=== PATIENT | male | born 1940 | race Caucasian/White ===

== ENCOUNTER 2023-10-14 11:05 | Observation (INO) | payer MEDICARE ==
[2023-10-14 17:08] LABS: #Eosinphils 0.1 thou/uL (0.0-0.7); #Monocytes 0.6 thou/uL (0.11-0.59); #Neutrophils 6.4 thou/uL (1.40-6.50); %Basophils 0.3 % (0.0-1.0); %Eosinophils 0.9 % (0.0-10.0); %Lymphocytes 10.3 % (21.0-51.0); %Monocytes 7.9 % (0.0-10.0); %Neutrophils 80.3 % (42.0-75.0); Hematocrit 43.9 % (42.0-52.0); Hemoglobin 15.2 g/dL (14.0-18.0); Mean Corpuscular HGB CONC 34.6 g/dL (32.0-36.0); Mean Corpuscular Hemoglobin 32.3 pg (27.0-31.0); Mean Corpuscular Volume 93.4 fl (78.0-98.0); Mean Platelet Volume 10.9 fL (7.4-10.4); Platelet Count 208 10x3/uL (130-400); RBC Distribution Width 12.8 % (11.5-14.5)
[2023-10-14 17:31] LABS: ALT (SGPT) 20 U/L (8-55); AST (SGOT) 17 U/L (5-34); Albumin 4.2 g/dL (3.4-4.8); Alkaline Phosphatase 99 U/L (40-110); Anion Gap 12 mmol/L (10-20); BUN (Urea Nitrogen) 25 mg/dL (8.4-25.7); Bilirubin, Total 0.7 mg/dL (0.2-1.2); Calc. Creatinine Clearance 0 mL/min (70-130); Calcium 9.2 mg/dL (7.8-10.44); Carbon Dioxide 28 mmol/L (23-31); Chloride 102 mmol/L (98-107); Estimated GFR 86; Globulin 2.9 g/dL (2.4-3.5); Glucose 96 mg/dL (83-110); Potassium 4.3 mmol/L (3.5-5.1); Protein, Total 7.1 g/dL (5.8-8.1); Sodium 138 mmol/L (136-145)
[2023-10-14] MEDS ORDERED: Acetaminophen 325 MG TAB PO PRN (17:36)
[2023-10-14] MEDS ORDERED: Ondansetron PF 4 MG/2 ML Vial IVP PRN (17:36)
[2023-10-14] MEDS ORDERED: Glucagon 1 MG/ML KIT IM PRN (19:19)
[2023-10-14] MEDS ORDERED: Dextrose 50% Abboject 50 ML SYRINGE SLOW IVP PRN (19:19)
[2023-10-14] MEDS ORDERED: Dextrose 5% in Water 1,000 ML IV PRN (19:19)
[2023-10-14] MEDS ORDERED: HumaLOG 300 UNITS/3 ML VIAL SC PRN ×2 (19:19)
[2023-10-14 19:20] VITALS: BMI 25.0
[2023-10-14] MEDS: Sodium Chloride 0.9% 1,000 ML IV SCH (20:33)
[2023-10-15 06:35] LABS: #Eosinphils 0.1 thou/uL (0.0-0.7); #Monocytes 0.7 thou/uL (0.11-0.59); #Neutrophils 5.7 thou/uL (1.40-6.50); %Basophils 0.3 % (0.0-1.0); %Lymphocytes 10.8 % (21.0-51.0); %Monocytes 9.2 % (0.0-10.0); %Neutrophils 78.6 % (42.0-75.0); Hematocrit 41.6 % (42.0-52.0); Hemoglobin 14.2 g/dL (14.0-18.0); Mean Corpuscular HGB CONC 34.1 g/dL (32.0-36.0); Mean Corpuscular Hemoglobin 32.2 pg (27.0-31.0); Mean Corpuscular Volume 94.3 fl (78.0-98.0); Mean Platelet Volume 10.9 fL (7.4-10.4); Platelet Count 190 10x3/uL (130-400); RBC Distribution Width 12.8 % (11.5-14.5); Red Blood Cell (RBC) Count 4.41 mill/uL (4.70-6.10); White Blood Cell (WBC) Count 7.3 10x3/uL (4.8-10.8)
[2023-10-15 06:57] LABS: Anion Gap 10 mmol/L (10-20); BUN (Urea Nitrogen) 25 mg/dL (8.4-25.7); Calc. Creatinine Clearance 68 mL/min (70-130); Calcium 8.5 mg/dL (7.8-10.44); Carbon Dioxide 23 mmol/L (23-31); Chloride 109 mmol/L (98-107); Estimated GFR 87; Glucose 104 mg/dL (83-110); Sodium 138 mmol/L (136-145)
[2023-10-15] MEDS ORDERED: PROPOFOL 20 ML ONE (08:13)
[2023-10-15] MEDS ORDERED: Lidocaine 1% PF 5 ML VIAL ONE (08:13)
[2023-10-15] MEDS ORDERED: CEFAZOLIN 1 GM VIAL ONE (08:30)
[2023-10-15 13:30] VITALS: BP 151/77; TEMP 98.2
[2023-10-15] MEDS: Sodium Chloride 0.9% 1,000 ML IV SCH (16:44)
[2023-10-16] MEDS ORDERED: PARoxetine 20 MG TAB PO SCH (09:00)
== END 2023-10-15 16:22 | disposition home or self-care (01) ==
LOC: ERS 11:05 → T4-B 16:10 → INTOOBSV 16:10
PROVIDERS: ADMIT Hospitalist; ATTEND Internal Medicine
PROC: 0DH63UZ Insertion of Feeding Device into Stomach, Percutaneous Approach (ICD-10-PCS; principal; 2023-10-14)
DX: K94.23 Gastrostomy malfunction (principal); K26.9 Duodenal ulcer, unspecified as acute or chronic, without hemorrhage or perforation; K44.9 Diaphragmatic hernia without obstruction or gangrene; E11.9 Type 2 diabetes mellitus without complications; Z96.659 Presence of unspecified artificial knee joint; Z98.890 Other specified postprocedural states; Z79.899 Other long term (current) drug therapy; Z85.21 Personal history of malignant neoplasm of larynx; Z85.51 Personal history of malignant neoplasm of bladder
CPT/HCPCS: 43239; 43246; 80048; 80053; 82962 ×2; 85025 ×2; 99284; G0378 ×2; 36415; 36416; 88305; 88342; J0690; J2704; J7050

== ENCOUNTER 2025-07-17 00:47 | Emergency (ER) | payer MEDICARE, BC ==
[2025-07-17 01:30] LABS: #Basophils 0.03 10x3/uL (0.0-0.2); #Eosinophils 0.05 10x3/uL (0.0-0.7); #Monocytes 0.97 10x3/uL (0.11-0.59); #Neutrophils 8.49 10x3/uL (1.40-6.50); %Basophils 0.3 % (0.0-1.0); %Eosinophils 0.5 % (0.0-10.0); %Lymphocytes 4.8 % (21.0-51.0); %Monocytes 9.6 % (0.0-10.0); %Neutrophils 84.4 % (42.0-75.0); Hematocrit 40.2 % (42.0-52.0); Hemoglobin 13.6 g/dL (14.0-18.0); Mean Corpuscular Hemoglobin 31.9 pg (27.0-31.0); Mean Corpuscular Volume 94.1 fL (78.0-98.0); Platelet Count 175 10x3/uL (130-400); Red Blood Cell (RBC) Count 4.27 mill/uL (4.70-6.10); White Blood Cell (WBC) Count 10.06 10x3/uL (4.8-10.8)
[2025-07-17 02:09] LABS: Bacteria/HPF 4+ HPF (None Seen); CAUTI Indications for Culture Pelvic or flank pain; Glucose, Urine (Dipstick) 100 mg/dL (Negative); Leukocyte 500 Leu/uL (Negative); Protein, Urine (Dipstick) 20 mg/dL (Neg-Trace); RBC/HPF 0-3 HPF (0-3); Specific Gravity, Urine 1.011 (1.002-1.036); WBC/HPF 21-50 HPF (0-3)
[2025-07-17 02:10] LABS: Urine Culture Reflex Yes Yes
[2025-07-17 02:10] LABS: ALT (SGPT) 16 U/L (Less than 45); AST (SGOT) 22 U/L (11-34); Albumin 3.6 g/dL (3.1-4.5); Alkaline Phosphatase 89 U/L (40-110); Anion Gap 18 mmol/L (10-20); BUN (Urea Nitrogen) 34 mg/dL (8.4-25.7); Bilirubin, Total 0.7 mg/dL (0.3-1.2); Calc. Creatinine Clearance 0 mL/min (70-130); Calcium 9.3 mg/dL (7.8-10.44); Carbon Dioxide 23 mmol/L (23-31); Chloride 100 mmol/L (98-107); Globulin 3.3 g/dL (2.4-3.5); Glucose 196 mg/dL (83-110); Potassium 3.9 mmol/L (3.5-5.1); Sodium 137 mmol/L (136-145)
[2025-07-17] MEDS ORDERED: cefTRIAXone (ROCEPHIN) 1 GM VIAL ONE (03:29)
[2025-07-17] MEDS ORDERED: Lidocaine 1% w/Epinephrine 1:100K 20 ML VIAL ONE (04:10)
== END 2025-07-17 09:16 ==
LOC: ERS 00:47
DX: S42.212A Unspecified displaced fracture of surgical neck of left humerus, initial encounter for closed fracture (principal); S51.022A Laceration with foreign body of left elbow, initial encounter; S00.12XA Contusion of left eyelid and periocular area, initial encounter; N39.0 Urinary tract infection, site not specified; E11.9 Type 2 diabetes mellitus without complications; W01.198A Fall on same level from slipping, tripping and stumbling with subsequent striking against other object, initial encounter
CPT/HCPCS: 70450; 72125; 73030; 73070; 80053; 81001; 85025; 87086; 93005; J0696; 12032; 36415; 51701; 51702; 87077; 87186; 96374; 96375